=== PATIENT | male | born 1980 | race Hispanic/Latino ===

== ENCOUNTER 2019-01-06 08:35 | Outpatient (CLI) | payer OTHER ==
--- NOTE | 2019-01-06 10:32 | RAD ---
SACRUM AND COCCYX STANDARD 3 VIEWS PROVIDED: Date: 01/06/19 INDICATION: Injury. FINDINGS: Symphysis pubis is intact without abnormal diastasis. There is osteophytosis of the sacroiliac joints , mild in degree. No acute fracture is visualized. Degenerative change present at the imaged lower laura mbar spine and lumbosacral junction. IMPRESSION: Degenerative osseous findings, without acute fracture. POS: C
== END 2019-01-06 08:36 | disposition home or self-care (01) ==
LOC: BICRAD 08:35
PROVIDERS: ATTEND Family Medicine
DX: S39.92XA Unspecified injury of lower back, initial encounter (principal); M53.3 Sacrococcygeal disorders, not elsewhere classified
CPT/HCPCS: 72220

== ENCOUNTER 2020-06-01 13:48 | Outpatient (CLI) | payer OTHER | END 2020-06-01 13:49 | disposition home or self-care (01) | LOC: BICRAD 13:48 | PROVIDERS: ATTEND Family Medicine | DX: M76.60 Achilles tendinitis, unspecified leg (principal) ==